=== PATIENT | female | born 1955 | race American Indian/Alaskan Native ===

== ENCOUNTER 2018-02-03 09:38 | Outpatient (CLI) | payer BC ==
--- NOTE | 2018-02-03 11:43 | XRay Report ---
XRAY RIGHT KNEE 3 THREE VIEWS: 02/03/18 09:38:00 CLINICAL: Right knee pain. FINDINGS: No fracture or dislocation. Small medial osteophytes but normal medial and lateral joint spaces. The patellofemoral joint is normal. No joint effusion.Normal soft tissues. IMPRESSION: Mild osteoarthritis of the medial joint.
== END 2018-02-03 09:39 | disposition home or self-care (01) ==
LOC: SPVIMAG 09:38
PROVIDERS: ATTEND Internal Medicine
DX: M17.11 Unilateral primary osteoarthritis, right knee (principal)